=== PATIENT | female | born 1995 | race Caucasian/White ===

== ENCOUNTER 2019-03-18 09:34 | Inpatient (IN) | payer BC, OTHER ==
[2019-03-18] MEDS ORDERED: Morphine PF 10 MG/10 ML SDV ONE (10:19)
[2019-03-18] MEDS ORDERED: fentaNYL 100 MCG/2 ML SDV IV ONE (10:19)
[2019-03-18] MEDS: Sodium Chloride 0.9% 10 ML Syringe FLUSH PRN ×2 (10:53→20:10)
[2019-03-18] MEDS ORDERED: Lactated Ringers 1,000 ML IV ONE (11:51)
[2019-03-18] MEDS ORDERED: ePHEDrine 50 MG/ML SDV ONE (12:26)
[2019-03-18] MEDS ORDERED: Scopolamine 1.5 MG Transdermal Patch ONE (12:26)
[2019-03-18] MEDS ORDERED: Lactated Ringers 1,000 ML IV SCH (12:45)
[2019-03-18] MEDS ORDERED: diphenhydrAMINE 50 MG/ML SDV IV PRN (13:00)
[2019-03-18] MEDS ORDERED: Promethazine 12.5 MG in Sodium Chloride 0.9% 50 ML IV PRN (13:00)
[2019-03-18] MEDS ORDERED: Naloxone 0.4 MG/ML SDV IVPUSH PRN (13:00)
[2019-03-18] MEDS ORDERED: Naltrexone 50 MG Tab PO PRN (13:00)
[2019-03-18] MEDS ORDERED: Lactated Ringers 500 ML IV SCH ×2 (13:00)
[2019-03-18] MEDS ORDERED: Nalbuphine 10 MG/1 ML Vial IVPUSH PRN (13:00)
[2019-03-18] MEDS ORDERED: ePHEDrine 50 MG/ML SDV IVPUSH PRN (13:00)
[2019-03-18] MEDS ORDERED: Famotidine/Normal Saline 20 MG in Premix Bag 1 BAG IV PRN (13:00)
[2019-03-18] MEDS ORDERED: Ondansetron 4 MG/2 ML SDV IVPUSH PRN (13:00)
[2019-03-18] MEDS ORDERED: diphenhydrAMINE 50 MG/ML SDV IVPUSH PRN (13:00)
[2019-03-18] MEDS ORDERED: Scopolamine 1.5 MG Transdermal Patch TOP ONE (13:00)
[2019-03-18] MEDS ORDERED: Promethazine 6.25 MG in Sodium Chloride 0.9% 50 ML IV PRN (13:00)
[2019-03-18] MEDS ORDERED: Oxytocin 10 Units/1 ML SDV IM ONE (16:05)
[2019-03-18] MEDS ORDERED: Lidocaine 1% 20 ML MDV INJECT ONE (16:10)
--- NOTE | 2019-03-18 16:50 | PCM.DEL ---
<Keira Daley - Last Filed: 03/18/19 16:46> L & D Note - General Info Date of Service: 03/18/19 - Delivery Note Labor: Spontaneous Delivery Outcome: Livebirth Infant Delivery Method: Spontaneous Vaginal Delivery-Single Delivery Mode: Spontaneous Presentation: OA Nuchal Cord: None Anesthesia Type: Intrathecal Anesthetic: Lidocaine (Xylocaine) 1% Plain Local Anesthetic Volume: 5cc Amniotic Fluid Description: Clear Episiotomy Type: None Laceration: 1st Degree Suture type: Vicryl Suture size: 4-0 Placenta: Intact, Spontaneous Cord: 3 Vessels Estimated Blood Loss: 500 Resuscitation Needed: No : Suctioned, Bulb Syringe Provider: Johnathon Delvalle Score 1 min: 9 Score 5 min: 9 - General Info Date of Service: 03/18/19 Admission Dx/Problem (Free Text): 23 year old , EDC 03/25/19, came in spontaneous rupture of membranes, clear, Group B negative. Delivered a normal female child, ARLETTE position. First degree laceration and a periurethral laceration on the right. Repaired in the usual fashion. Blood less <500 mL. - Patient Data Vitals - Most Recent: Last Vital Signs Temp 36.5 C 03/18/19 11:22 Pulse 88 03/18/19 11:03 Resp BP 130/76 03/18/19 10:01 Pulse Ox Weight - Most Recent: 215 lb Med Orders - Current: Current Medications Diphenhydramine HCl (Benadryl) 25 mg IVPUSH ASDIRECTED PRN PRN Reason: EXTRAPYRAMIDAL SIDE EFFECTS Diphenhydramine HCl (Benadryl) 25 mg IV ASDIRECTED PRN PRN Reason: PRURITUS Ephedrine Sulfate (Ephedrine Sulfate) 0 mg IVPUSH ASDIRECTED PRN PRN Reason: Hypotension Lactated Ringer's (Ringers, Lactated) 1,000 mls @ 150 mls/hr IV ASDIRECTED [facility] Last Admin: 03/18/19 12:42 Dose: 150 mls/hr Famotidine 20 mg/ Premix 50 mls @ 100 mls/hr IV ONETIME PRN PRN Reason: PRURITIS Lactated Ringer's (Ringers, Lactated) 500 mls @ 999 mls/hr IV .SEECOMMENT [facility] Lactated Ringer's (Ringers, Lactated) 500 mls @ 999 mls/hr IV BOLUS [facility] Promethazine HCl 6.25 mg/ (Sodium Chloride) 50.25 mls @ 200 mls/hr IV Q4H PRN PRN Reason: Nausea/Vomiting Promethazine HCl 12.5 mg/ (Sodium Chloride) 50.5 mls @ 200 mls/hr IV Q4H PRN PRN Reason: Nausea/Vomiting Miscellaneous Information (Remove Patch) 1 ea TRDERM ASDIRECTED [facility] Nalbuphine HCl (Nubain) 10 mg IVPUSH Q1H PRN PRN Reason: PRURITUS Naloxone HCl (Narcan) 0.1 mg IVPUSH ASDIRECTED PRN PRN Reason: Respiratory Depression Naltrexone HCl (Naltrexone) 25 mg PO ASDIRECTED PRN PRN Reason: REVERSAL Ondansetron HCl (Zofran) 4 mg IVPUSH Q4H PRN PRN Reason: Nausea/Vomiting Sodium Chloride (Saline Flush) 10 ml FLUSH ASDIRECTED PRN PRN Reason: Keep Vein Open Last Admin: 03/18/19 10:53 Dose: 10 ml Discontinued Medications Ephedrine Sulfate (Ephedrine Sulfate) Confirm Administered Dose 50 mg .ROUTE .STK-MED ONE Stop: 03/18/19 12:27 Lactated Ringer's (Ringers, Lactated) 1,000 mls @ 999 mls/hr IV BOLUS ONE Stop: 03/18/19 12:51 Last Admin: 03/18/19 11:51 Dose: 999 mls/hr Scopolamine (Transderm-Scop) Confirm Administered Dose 1.5 mg .ROUTE .STK-MED ONE Stop: 03/18/19 12:27 Scopolamine (Transderm-Scop) 1.5 mg TOP ONETIME ONE Stop: 03/18/19 13:01 - Problem List & Annotations (1) Vaginal delivery SNOMED Code(s): 472148408 Code(s): O80 - ENCOUNTER FOR FULL-TERM UNCOMPLICATED DELIVERY Status: Acute Current Visit: Yes - Problem List Review Problem List Initiated/Reviewed/Updated: Yes - Plan Plan:: 1. Regular diet 2. H&H in the morning 3. Up ad olive 4. Mom to formula feed 5. Mom cannot take PO, so liquid motrin or Tylenol #3 PRN for pain <Johnathon Delvalle - Last Filed: 03/18/19 17:10> - Patient Data Vitals - Most Recent: Last Vital Signs Temp 97.7 F 03/18/19 11:22 Pulse 88 03/18/19 11:03 Resp BP 130/76 03/18/19 10:01 Pulse Ox Med Orders - Current: Current Medications Acetaminophen/Codeine Phosphate (Tylenol/Codeine 120-12 Mg/5 Ml) 10 ml PO Q6H PRN PRN Reason: Pain Diphenhydramine HCl (Benadryl) 25 mg IVPUSH ASDIRECTED PRN PRN Reason: EXTRAPYRAMIDAL SIDE EFFECTS Diphenhydramine HCl (Benadryl) 25 mg IV ASDIRECTED PRN PRN Reason: PRURITUS Ephedrine Sulfate (Ephedrine Sulfate) 0 mg IVPUSH ASDIRECTED PRN PRN Reason: Hypotension Lactated Ringer's (Ringers, Lactated) 1,000 mls @ 150 mls/hr IV ASDIRECTED [facility] Last Admin: 03/18/19 12:42 Dose: 150 mls/hr Famotidine 20 mg/ Premix 50 mls @ 100 mls/hr IV ONETIME PRN PRN Reason: PRURITIS Lactated Ringer's (Ringers, Lactated) 500 mls @ 999 mls/hr IV .SEECOMMENT [facility] Lactated Ringer's (Ringers, Lactated) 500 mls @ 999 mls/hr IV BOLUS [facility] Promethazine HCl 6.25 mg/ (Sodium Chloride) 50.25 mls @ 200 mls/hr IV Q4H PRN PRN Reason: Nausea/Vomiting Promethazine HCl 12.5 mg/ (Sodium Chloride) 50.5 mls @ 200 mls/hr IV Q4H PRN PRN Reason: Nausea/Vomiting Ibuprofen (Motrin 100 Mg/5 Ml Susp) 600 mg PO Q6H PRN PRN Reason: Pain Miscellaneous Information (Remove Patch) 1 ea TRDERM ASDIRECTED [facility] Nalbuphine HCl (Nubain) 10 mg IVPUSH Q1H PRN PRN Reason: PRURITUS Naloxone HCl (Narcan) 0.1 mg IVPUSH ASDIRECTED PRN PRN Reason: Respiratory Depression Naltrexone HCl (Naltrexone) 25 mg PO ASDIRECTED PRN PRN Reason: REVERSAL Ondansetron HCl (Zofran) 4 mg IVPUSH Q4H PRN PRN Reason: Nausea/Vomiting Sodium Chloride (Saline Flush) 10 ml FLUSH ASDIRECTED PRN PRN Reason: Keep Vein Open Last Admin: 03/18/19 10:53 Dose: 10 ml Discontinued Medications Ephedrine Sulfate (Ephedrine Sulfate) Confirm Administered Dose 50 mg .ROUTE .STK-MED ONE Stop: 03/18/19 12:27 Lactated Ringer's (Ringers, Lactated) 1,000 mls @ 999 mls/hr IV BOLUS ONE Stop: 03/18/19 12:51 Last Admin: 03/18/19 11:51 Dose: 999 mls/hr Scopolamine (Transderm-Scop) Confirm Administered Dose 1.5 mg .ROUTE .STK-MED ONE Stop: 03/18/19 12:27 Scopolamine (Transderm-Scop) 1.5 mg TOP ONETIME ONE Stop: 03/18/19 13:01 - My Orders Last 24 Hours: My Active Orders 03/18/19 09:47 Communication Order [RC] ASDIRECTED Non Stress Test [RC] Click to Edit Notify Provider [RC] PRN Vital Signs [RC] PER UNIT ROUTINE Sodium Chloride 0.9% [Saline Flush] 10 ml FLUSH ASDIRECTED PRN Saline Lock Insert [OM.PC] Routine Resuscitation Status Routine 03/18/19 09:49 Notify Provider Vital Signs [RC] PRN 03/18/19 11:01 Admission Status [Patient Status] [ADT] Routine - Plan Plan:: I attest that I saw this pt and agree with the note and plan.
--- NOTE | 2019-03-18 17:13 | PCM.SN ---
- Free Text/Narrative Note: S)23 yO EDC 03/27/19 her with Spontaneous rupture of membranes. Group B neg. O) cervix9,10,0 A) primip term with SROM, group B neg in labor. P0 vaginal delivery
[2019-03-18] MEDS: Acetaminophen/Codeine 120-12 MG/5 ML Soln 5 ML UD Cup PO PRN ×2 (17:18→19:50)
[2019-03-18] MEDS ORDERED: Acetaminophen Soln 650 MG/20.3 ML UD Cup PO PRN (18:27)
[2019-03-19] MEDS: Ibuprofen Susp 100 MG/5 ML 5 ML UD Cup PO PRN ×2 (02:00→16:00)
--- NOTE | 2019-03-19 09:19 | PCM.PNPP ---
- General Info Date of Service: 03/19/19 Functional Status: Reports: Pain Controlled, Tolerating Diet - Review of Systems General: Reports: No Symptoms HEENT: Reports: No Symptoms Pulmonary: Reports: No Symptoms Cardiovascular: Reports: No Symptoms Gastrointestinal: Reports: No Symptoms Genitourinary: Reports: No Symptoms - General Info Date of Service: 03/19/19 - Patient Data Vital Signs - Most Recent: Last Vital Signs Temp 99.6 F 03/19/19 02:00 Pulse 87 03/19/19 02:00 Resp 18 03/19/19 02:00 BP 96/57 L 03/19/19 02:00 Pulse Ox 99 03/19/19 02:00 Weight - Most Recent: 97.522 kg I&O - Last 24 Hours: Intake & Output 03/18/19 03/19/19 03/19/19 22:59 06:59 14:59 Intake Total 1200 Output Total 250 Balance 950 Lab Results - Last 24 Hours: Laboratory Results - last 24 hr 03/19/19 Range/Units 06:25 Hgb 9.9 L (11.5-15.5) g/dL Hct 29.7 L (30.0-51.3) % Med Orders - Current: Current Medications Acetaminophen (Tylenol) 650 mg PO Q6H PRN PRN Reason: Pain Acetaminophen/Codeine Phosphate (Tylenol/Codeine 120-12 Mg/5 Ml) 10 ml PO Q6H PRN PRN Reason: Pain Last Admin: 03/18/19 19:50 Dose: 10 ml Ibuprofen (Motrin 100 Mg/5 Ml Susp) 600 mg PO Q6H PRN PRN Reason: Pain Last Admin: 03/19/19 02:00 Dose: 600 mg Miscellaneous Information (Remove Patch) 1 ea TRDERM ASDIRECTED [facility] Sodium Chloride (Saline Flush) 10 ml FLUSH ASDIRECTED PRN PRN Reason: Keep Vein Open Last Admin: 03/18/19 20:10 Dose: 10 ml Discontinued Medications Diphenhydramine HCl (Benadryl) 25 mg IVPUSH ASDIRECTED PRN PRN Reason: EXTRAPYRAMIDAL SIDE EFFECTS Diphenhydramine HCl (Benadryl) 25 mg IV ASDIRECTED PRN PRN Reason: PRURITUS Ephedrine Sulfate (Ephedrine Sulfate) Confirm Administered Dose 50 mg .ROUTE .STK-MED ONE Stop: 06/13/19 12:27 Last Admin: 03/18/19 17:37 Dose: Not Given Ephedrine Sulfate (Ephedrine Sulfate) 0 mg IVPUSH ASDIRECTED PRN PRN Reason: Hypotension Lactated Ringer's (Ringers, Lactated) 1,000 mls @ 999 mls/hr IV BOLUS ONE Stop: 03/18/19 12:51 Last Admin: 03/18/19 11:51 Dose: 999 mls/hr Lactated Ringer's (Ringers, Lactated) 1,000 mls @ 150 mls/hr IV ASDIRECTED [facility] Last Admin: 03/18/19 12:42 Dose: 150 mls/hr Famotidine 20 mg/ Premix 50 mls @ 100 mls/hr IV ONETIME PRN PRN Reason: PRURITIS Lactated Ringer's (Ringers, Lactated) 500 mls @ 999 mls/hr IV .SEECOMMENT [facility] Lactated Ringer's (Ringers, Lactated) 500 mls @ 999 mls/hr IV BOLUS [facility] Promethazine HCl 6.25 mg/ (Sodium Chloride) 50.25 mls @ 200 mls/hr IV Q4H PRN PRN Reason: Nausea/Vomiting Promethazine HCl 12.5 mg/ (Sodium Chloride) 50.5 mls @ 200 mls/hr IV Q4H PRN PRN Reason: Nausea/Vomiting Lidocaine HCl (Xylocaine 1%) 20 ml INJECT ONETIME ONE Stop: 03/18/19 16:11 Last Admin: 03/18/19 16:10 Dose: 20 ml Nalbuphine HCl (Nubain) 10 mg IVPUSH Q1H PRN PRN Reason: PRURITUS Naloxone HCl (Narcan) 0.1 mg IVPUSH ASDIRECTED PRN PRN Reason: Respiratory Depression Naltrexone HCl (Naltrexone) 25 mg PO ASDIRECTED PRN PRN Reason: REVERSAL Last Admin: 03/18/19 17:17 Dose: 25 mg Ondansetron HCl (Zofran) 4 mg IVPUSH Q4H PRN PRN Reason: Nausea/Vomiting Last Admin: 03/18/19 18:21 Dose: 4 mg Oxytocin (Pitocin) 10 unit IM ONETIME ONE Stop: 03/18/19 16:06 Last Admin: 03/18/19 16:07 Dose: 10 unit Scopolamine (Transderm-Scop) Confirm Administered Dose 1.5 mg .ROUTE .STK-MED ONE Stop: 03/18/19 12:27 Last Admin: 03/18/19 17:38 Dose: Not Given Scopolamine (Transderm-Scop) 1.5 mg TOP ONETIME ONE Stop: 03/18/19 13:01 Last Admin: 03/18/19 12:28 Dose: 1.5 mg - Infant Interaction Disposition, : in Room with Family Infant Interaction: Holding Infant Support Person: Significant Other - Recovery Exam Fundal Tone: Firm Fundal Level: 1 Fingerbreadths Below Umbilicus Fundal Placement: Midline Lochia Amount: Moderate Lochia Color: Rubra/Red Perineum Description: Intact, Minimal Bruising/Swelling Episiotomy/Laceration: Approximated Bladder Status: Voiding - Exam General: Alert, Moderate Distress, Other Lungs: Clear to Auscultation Cardiovascular: Regular Rate GI/Abdominal Exam: Normal Bowel Sounds, Soft, Non-Tender Skin: Warm - Problem List & Annotations (1) care and examination SNOMED Code(s): 016071128, 316917519 Code(s): Z39.2 - ENCOUNTER FOR ROUTINE FOLLOW-UP Status: Acute Current Visit: Yes (2) Anemia SNOMED Code(s): 899396378 Code(s): D64.9 - ANEMIA, UNSPECIFIED Status: Acute Current Visit: Yes Qualifiers: Anemia type: unspecified type Qualified Code(s): D64.9 - Anemia, unspecified - Problem List Review Problem List Initiated/Reviewed/Updated: Yes - Plan Plan:: Routine care.
[2019-03-20] MEDS: Ibuprofen Susp 100 MG/5 ML 5 ML UD Cup PO PRN (04:45)
--- NOTE | 2019-03-20 08:52 | PCM.PNPP ---
- General Info Date of Service: 03/20/19 Subjective Update: Complains of an area on the right leg that is infected. She had a dog leash that caused some excoriation an injury a few days ago. Functional Status: Reports: Pain Controlled - Review of Systems General: Reports: No Symptoms HEENT: Reports: No Symptoms Pulmonary: Reports: No Symptoms Cardiovascular: Reports: No Symptoms Gastrointestinal: Reports: No Symptoms - General Info Date of Service: 03/20/19 - Patient Data Vital Signs - Most Recent: Last Vital Signs Temp 97.8 F 03/20/19 04:30 Pulse 121 H 03/20/19 04:30 Resp 18 03/20/19 04:30 BP 125/73 03/20/19 04:30 Pulse Ox 100 03/20/19 04:30 Weight - Most Recent: 97.522 kg Med Orders - Current: Current Medications Acetaminophen (Tylenol) 650 mg PO Q6H PRN PRN Reason: Pain Acetaminophen/Codeine Phosphate (Tylenol/Codeine 120-12 Mg/5 Ml) 10 ml PO Q6H PRN PRN Reason: Pain Last Admin: 03/18/19 19:50 Dose: 10 ml Ibuprofen (Motrin 100 Mg/5 Ml Susp) 600 mg PO Q6H PRN PRN Reason: Pain Last Admin: 03/20/19 04:45 Dose: 600 mg Miscellaneous Information (Remove Patch) 1 ea TRDERM ASDIRECTED [facility] Last Admin: 03/19/19 16:00 Dose: 1 ea Sodium Chloride (Saline Flush) 10 ml FLUSH ASDIRECTED PRN PRN Reason: Keep Vein Open Last Admin: 03/18/19 20:10 Dose: 10 ml Discontinued Medications Diphenhydramine HCl (Benadryl) 25 mg IVPUSH ASDIRECTED PRN PRN Reason: EXTRAPYRAMIDAL SIDE EFFECTS Diphenhydramine HCl (Benadryl) 25 mg IV ASDIRECTED PRN PRN Reason: PRURITUS Ephedrine Sulfate (Ephedrine Sulfate) Confirm Administered Dose 50 mg .ROUTE .STK-MED ONE Stop: 03/18/19 12:27 Last Admin: 03/18/19 17:37 Dose: Not Given Ephedrine Sulfate (Ephedrine Sulfate) 0 mg IVPUSH ASDIRECTED PRN PRN Reason: Hypotension Lactated Ringer's (Ringers, Lactated) 1,000 mls @ 999 mls/hr IV BOLUS ONE Stop: 03/18/19 12:51 Last Admin: 03/18/19 11:51 Dose: 999 mls/hr Lactated Ringer's (Ringers, Lactated) 1,000 mls @ 150 mls/hr IV ASDIRECTED [facility] Last Admin: 03/18/19 12:42 Dose: 150 mls/hr Famotidine 20 mg/ Premix 50 mls @ 100 mls/hr IV ONETIME PRN PRN Reason: PRURITIS Lactated Ringer's (Ringers, Lactated) 500 mls @ 999 mls/hr IV .SEECOMMENT [facility] Lactated Ringer's (Ringers, Lactated) 500 mls @ 999 mls/hr IV BOLUS [facility] Promethazine HCl 6.25 mg/ (Sodium Chloride) 50.25 mls @ 200 mls/hr IV Q4H PRN PRN Reason: Nausea/Vomiting Promethazine HCl 12.5 mg/ (Sodium Chloride) 50.5 mls @ 200 mls/hr IV Q4H PRN PRN Reason: Nausea/Vomiting Lidocaine HCl (Xylocaine 1%) 20 ml INJECT ONETIME ONE Stop: 03/18/19 16:11 Last Admin: 03/18/19 16:10 Dose: 20 ml Nalbuphine HCl (Nubain) 10 mg IVPUSH Q1H PRN PRN Reason: PRURITUS Naloxone HCl (Narcan) 0.1 mg IVPUSH ASDIRECTED PRN PRN Reason: Respiratory Depression Naltrexone HCl (Naltrexone) 25 mg PO ASDIRECTED PRN PRN Reason: REVERSAL Last Admin: 03/18/19 17:17 Dose: 25 mg Ondansetron HCl (Zofran) 4 mg IVPUSH Q4H PRN PRN Reason: Nausea/Vomiting Last Admin: 03/18/19 18:21 Dose: 4 mg Oxytocin (Pitocin) 10 unit IM ONETIME ONE Stop: 03/18/19 16:06 Last Admin: 03/18/19 16:07 Dose: 10 unit Scopolamine (Transderm-Scop) Confirm Administered Dose 1.5 mg .ROUTE .STK-MED ONE Stop: 03/18/19 12:27 Last Admin: 03/18/19 17:38 Dose: Not Given Scopolamine (Transderm-Scop) 1.5 mg TOP ONETIME ONE Stop: 03/18/19 13:01 Last Admin: 03/18/19 12:28 Dose: 1.5 mg - Interaction Infant Disposition, : in Room with Family Infant Interaction: Holding Infant Support Person: Significant Other - Recovery Exam Fundal Tone: Firm Fundal Level: 1 Fingerbreadths Below Umbilicus Fundal Placement: Midline Lochia Amount: Small Lochia Color: Rubra/Red Perineum Description: Intact, Minimal Bruising/Swelling Episiotomy/Laceration: Approximated Bladder Status: Voiding - Exam General: Alert HEENT: Pupils Equal Lungs: Clear to Auscultation Extremities: Increased Warmth, Redness - Problem List & Annotations (1) care and examination SNOMED Code(s): 583804978, 920100692 Code(s): Z39.2 - ENCOUNTER FOR ROUTINE FOLLOW-UP Status: Acute Current Visit: Yes (2) Anemia SNOMED Code(s): 070387233 Code(s): D64.9 - ANEMIA, UNSPECIFIED Status: Acute Current Visit: Yes Qualifiers: Anemia type: unspecified type Qualified Code(s): D64.9 - Anemia, unspecified (3) Wound infection SNOMED Code(s): 40941436 Code(s): T14.8XXA - OTHER INJURY OF UNSPECIFIED BODY REGION, INITIAL ENCOUNTER; L08.9 - LOCAL INFECTION OF THE SKIN AND SUBCUTANEOUS TISSUE, UNSP Status: Acute Current Visit: Yes - Problem List Review Problem List Initiated/Reviewed/Updated: Yes - Plan Plan:: DC home Cephalexin recommended for cellulitis.
--- NOTE | 2019-03-20 11:32 | DISCH ---
DISCHARGE DATE: 03/20/2019 REASON FOR ADMISSION: Vaginal delivery. DISCHARGE DIAGNOSES: 1. Spontaneous vaginal delivery. 2. Anemia. 3. Cellulitis, right lower extremity. BRIEF HISTORY: This is a 23-year-old primigravida who came in at term with premature rupture of membranes and then onset of labor. She had an uncomplicated vaginal delivery by Dr. Delvalle. She had a hemoglobin of 9.5 on the day after delivery. She had a wound on the right leg that was looking infected and red, and the decision was made to discharge her home on cephalexin. She will see me in 6 weeks in the office. She does not plan to breastfeed. I spent more than 35 minutes in the discharge of the patient. /[id number] PAULO/ERIKA
== END 2019-03-20 10:20 | disposition home or self-care (01) | DRG 805 ==
LOC: FB.OBCHECK 09:34 → FB.OB 09:34 → FB.OBCHECK 10:59 → FB.OB 11:00
PROVIDERS: ADMIT Family Medicine; ATTEND Family Medicine
PROC: 0HQ9XZZ Repair Perineum Skin, External Approach (ICD-10-PCS; principal; 2019-03-18)
PROC: 10E0XZZ Delivery of Products of Conception, External Approach (ICD-10-PCS; 2019-03-18)
PROC: 00HU33Z Insertion of Infusion Device into Spinal Canal, Percutaneous Approach (ICD-10-PCS; 2019-03-18)
DX: O70.0 First degree perineal laceration during delivery (principal); O75.3 Other infection during labor; Z37.0 Single live birth; L03.115 Cellulitis of right lower limb; Z3A.38 38 weeks gestation of pregnancy; O90.81 Anemia of the puerperium
CPT/HCPCS: 36415; 59409; 85014; 85018; A9270-GY; J2001; J2270; J2405; J2590; J3010; J7120